=== PATIENT | female | born 1985 | race Caucasian/White ===

== ENCOUNTER 2017-11-09 06:31 | Inpatient (IN) | payer OTHER ==
[~2017-11-09] VITALS: Ht 160 cm; Wt 93.0 kg
[~2017-11-09 06:31] MED LIST: PERCOCET 325 MG1 TA2 PO
[2017-11-09 08:16] LABS: ABSOLUTE BASOPHIL COUNT 0 /CUMM (0.0-0.2); ABSOLUTE EOSINOPHIL COUNT 0.2 /CUMM (0.0-0.7); ABSOLUTE GRANULOCYTE CT 4.3 /CUMM (1.4-6.5); ABSOLUTE MONOCYTE COUNT 0.5 /CUMM (0.10-0.60); BASOPHIL % 0.5 % (0.0-2.0); EOSINOPHIL % 2.1 % (0-5); GRANULOCYTE % 61.4 % (42.2-75.2); HEMATOCRIT 32.7 % (37-47); MEAN CORPUSCULAR HGB 31.2 PG (27.0-31.0); MEAN CORPUSCULAR HGB CONC 34.8 G/DL (33.0-37.0); MEAN CORPUSCULAR VOLUME 89.9 FL (81.0-99.0); MEAN PLATELET VOLUME 9.4 FL (7.4-10.4); PLATELET COUNT 196 /CUMM (130-400); RBC DISTRIBUTION WIDTH 13.9 % (11.5-14.5); RED BLOOD CELL CT 3.63 /CUMM (4.20-5.40)
--- NOTE | 2017-11-09 10:03 | History & Physical ---
General Information and HPI MD Statement: I have seen and personally examined ORACIO NIETO and documented this H&P. The patient is a 32 year old female at [40] weeks and [] days gestation who presented with a chief complaint of [LOF]. Source of Information: patient Exam Limitations: no limitations History of Present Illness: 32yo, at 40 wks , c/o LOF since 4:30AM, occasional ctxs, denies VB, reports GFM. care started at 10wks. issues: 1. prior c/s on 06/02/2016 at 34 wks due to failed induction for preeclampsia. x 1 2002. pt desires to . 2. chronic HTN, she takes labetalol 150mg BID, BP WNL. 3. h/o genital herpes, pt takes valtrex since 36 wks 4. Rh negative, received RhoGAm at 28wks. 5. 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 History: preeclampsia Past Pregnancies Past Pregnancies: Date of Delivery: 200206/02/2016 Gestational Age: 40wks 34 wks Weight: 7lb4oz 3lb5oz Type of Delivery: vaginal (1st , 2nd ) Medical History Blood Transfusion Hx: No Neurological: NONE EENT: NONE Cardiovascular: hypertension, hyperlipidemia Respiratory: NONE Gastrointestinal: GERD Hepatic: NONE Renal: NONE Musculoskeletal: NONE Psychiatric: NONE Endocrine: NONE Blood Disorders: NONE 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 Home Smoking Status: Never Smoked ETOH Use: occasional use Illicit Drug Use: denies illicit drug use Review of Systems Review of Systems Constitutional: Reports: no symptoms. EENTM: Reports: no symptoms. Cardiovascular: Reports: no symptoms. Respiratory: Reports: no symptoms. GI: Reports: no symptoms. Genitourinary: Reports: see HPI. Musculoskeletal: Reports: no symptoms. Skin: Reports: no symptoms. Neurological/Psychological: Reports: no symptoms. Hematologic/Endocrine: Reports: no symptoms. Immunologic/Allergic: Reports: no symptoms. All Other Systems: Reviewed and Negative Exam & Diagnostic Data Last 24 Hrs of Vital Signs/I&O Vital Signs Date Time Temp Pulse Resp B/P B/P Pulse O2 O2 Flow FiO2 Mean Ox Delivery Rate 11/09 09 72 132/85 Intake & Output 11/09 1600 11/09 0800 11/09 0000 Intake Total Output Total Balance Patient 92.986 kg Weight Obstetric Exam Wgt Gained During : 20lbs Pelvimetry: adequate Dilation (cm): 3 Effacement (%): 50 Station: -2 Membranes: SROM Fluid: clear Fundal Height (cm): 40 Multiple Gestation? No Contractions: occasional #1 - FHR Baseline: 120 Category: 1 Estimated Weight: 3200G Presentation: vertex Patient for Induction? No Physical Exam: VSS General: NAD abdomen: gravid, soift, nontender Ext: DCT (-) Labs Blood Type & Rh: A negative Antibody Screen: negative Hct/Hgb & Platelets #1: 12.3/38.3%,[id number] Hct/Hgb & Platelets #2: 10.4/33.4%,[id number] Rubella: immune VDRL #1: negative VDRL #2: negative HbsAg: negative HIV #1: negative HIV #2 negative 1 Hr P Group B Strep: negative Initial Ultrasound: IUP at 10 wks Anatomy Ultrasound: nl Genetic Testing: nl Last 24 Hrs of Labs/Ricardo: Laboratory Tests 11/09/17 0830: Estimated GFR > 60, Uric Acid 6.3 H, AST 38 H, ALT 50, Lactate Dehydrogenase 581 11/09/17 0715: Urine Color YEL, Urine Clarity HAZY H, Urine pH 6.0, Ur Specific [place] >= 1.030, Urine Protein NEG, Urine Ketones NEG, Urine Nitrite NEG, Urine Bilirubin NEG, Urine Urobilinogen 0.2, Ur Leukocyte Esterase NEG, Ur Microscopic SEDIMENT EXAMINED, Urine WBC 1-3 H, Ur Epithelial Cells MANY H, Urine Bacteria FEW H, Urine Mucus FEW, Urine Hemoglobin NEG, Urine Glucose NEG 11/09/17 0650: CBC w Diff NO MAN DIFF REQ, RBC 3.63 L, MCV 89.9, MCH 31.2 H, MCHC 34.8, RDW 13.9, MPV 9.4, Gran % 61.4, Lymphocytes % 28.6, Monocytes % 7.4, Eosinophils % 2.1, Basophils % 0.5, Absolute Granulocytes 4.3, Absolute Lymphocytes 2.0, Absolute Monocytes 0.5, Absolute Eosinophils 0.2, Absolute Basophils 0 Assessment/Plan Assessment/Plan: 32yo, 40wks, SROM, prior c/s 1. admit pt, admision labs 2. R/B/A of d/w pt, she understand, all questions answered, informed cosnent obtained. d/w pt about pitocin auugmentation, R/B/A of pitocin d/w pt, she understand and agreed with plan. 3. will monitor closley As Ranked By This Provider Problem List: 1. 2. HTN (hypertension) 3. Previous section 4. SROM (spontaneous rupture of membranes) Core Measures Venous Thromboembolism VTE Risk Factors / No Mechanical VTE Prophylaxis d/t LowRisk-No Interven Req'd No VTE Pharm Prophylaxis d/t LowRisk-No Interven Req'd Attending MD Review Statement Attending Statement Attending MD Statement: examined this patient, discussed with family, discussed w/nursing
--- NOTE | 2017-11-09 13:42 | Labor & Delivery Summary ---
Delivery Summary Vaginal Delivery: Vaginal: vertex Episiotomy/Lacerations: Episiotomy/Lacerations: 2ND DEGREE Type: SMALL 2ND DEGREE Repair: 3-0 VICRYL Anesthesia: EPIDURAL Placenta: Placenta: spontanteous, normal, 3 vessel Anesthesia: EPIDURAL Baby's Weight: 3025G Apgars - 1 Min: 9 Apgars - 5 Min: 9 Additional Comments: Patient fully dilated, pushed well, spontaneously deliver a viable male in cephalic presentation, CHALRENE position, head delivered atraumatically, followed by shoulder and rest of the body without difficulties, baby vigorous and cried, placed on mother's chest, cord clamped and cut. Placenta delivered spontaneously, intact, three-vessel cord. Small second-degree laceration repaired with 3-0 Vicryl using standard technique. EBL 470 mL. Patient tolerated procedure well, sponge, needles and instruments counts were correct. Patient is in recovery room in stable condition.
[2017-11-10 08:33] LABS: ABSOLUTE BASOPHIL COUNT 0 /CUMM (0.0-0.2); ABSOLUTE EOSINOPHIL COUNT 0.1 /CUMM (0.0-0.7); ABSOLUTE GRANULOCYTE CT 5.7 /CUMM (1.4-6.5); ABSOLUTE LYMPH COUNT 1.9 /CUMM (1.2-3.4); ABSOLUTE MONOCYTE COUNT 0.6 /CUMM (0.10-0.60); BASOPHIL % 0.4 % (0.0-2.0); EOSINOPHIL % 1.5 % (0-5); GRANULOCYTE % 68.6 % (42.2-75.2); HEMATOCRIT 31.3 % (37-47); MEAN CORPUSCULAR HGB 30.8 PG (27.0-31.0); MEAN CORPUSCULAR HGB CONC 34.2 G/DL (33.0-37.0); MEAN CORPUSCULAR VOLUME 89.9 FL (81.0-99.0); MEAN PLATELET VOLUME 9.4 FL (7.4-10.4); PLATELET COUNT 176 /CUMM (130-400); RBC DISTRIBUTION WIDTH 14.1 % (11.5-14.5); RED BLOOD CELL CT 3.49 /CUMM (4.20-5.40); WHITE BLOOD CELL COUNT 8.3 /CUMM (4.8-10.8)
--- NOTE | 2017-11-11 07:56 | PN- OBGYN ---
Surgical Brief Attending Note Brief Attending Note: PPD#2 pt is resting in bed, no complaints, tolerate diet, void without difficulties, well PE: VSS CV RRR lungs CTA B/L Abdomen: soft, nontender, uterus firm, fundus below umbilicus. lochia mild Ext: DCT (-) A/P: 32 yo, s/p , PPD#2 1. encourage ambulation and breastfeeidng 2. continue labetalol 150mg BID, monitor BP at home. 3. will d/c home today, f/u in office in 1 wk and 6 wks, discharge instructions given, she understand.
--- NOTE | 2017-11-11 07:59 | PN- OBGYN ---
Surgical Brief Attending Note Brief Attending Note: Late entry for 11/10/2017 PPD#1 pt is fdoing well, no complaints PE: VSS CV RRR Lungs CTA B/L Abdomen: soft, nontender, uterus firm , funduns below umbilicus. lochia mild Ext: DCT (-) A/P: 32 yo, s/p , PPD#1 1. encourage ambulation and breastfeeidng 2. BP WNL, will continue labetalol 150mg BID, repeat lab 3. pt desires circumcision for the baby, R/B/A of circumcision d/w pt , all questions answered, informed consent obtained.
[2017-11-11 09:28] VITALS: BP 120/64
== END 2017-11-11 12:55 | DRG 560 ==
LOC: GNO 06:31
PROVIDERS: Obstetrics & Gynecology
PROC: 10E0XZZ Delivery of Products of Conception, External Approach (ICD-10-PCS; principal; 2017-11-09)
PROC: 0KQM0ZZ Repair Perineum Muscle, Open Approach (ICD-10-PCS; principal; 2017-11-09)
DX: O70.1 Second degree perineal laceration during delivery (principal); O10.92 Unspecified pre-existing hypertension complicating childbirth; O36.0990 Maternal care for other rhesus isoimmunization, unspecified trimester, not applicable or unspecified; Z3A.40 40 weeks gestation of pregnancy; Z37.0 Single live birth; O99.214 Obesity complicating childbirth
CPT/HCPCS: GNOP; GNOS; 81001; 86920; 86922; 87086; J3490; J7120

== ENCOUNTER 2017-11-12 21:35 | Observation (INO) | payer OTHER ==
[~2017-11-12] VITALS: Ht 157.5 cm; Wt 86.2 kg
--- NOTE | 2017-11-12 22:27 | ED GENERAL ADULT ---
History of Present Illness General Chief Complaint: General Adult Stated Complaint: 3DAYS POSTPARDOM, BLURRY VISION,ALFARO,CONFUSION Source: patient Exam Limitations: no limitations Vital Signs & Intake/Output Vital Signs & Intake/Output Vital Signs Date Time Temp Pulse Resp B/P B/P Pulse O2 O2 Flow FiO2 Mean Ox Delivery Rate 11/13 0058 68 142/77 11/12 2356 68 18 142/77 98 Room Air 11/12 2338 69 20 147/83 99 Room Air 11/12 2317 69 143/76 97 Room Air 11/12 2250 146/90 11/12 2247 71 18 147/92 97 Room Air 11/12 2245 71 146/90 11/12 2235 98.7 120 18 172/87 99 Room Air 11/12 2140 98.2 87 18 172/112 99 Room Air ED Intake and Output 11/13 0000 11/12 1200 Intake Total 0 Output Total Balance 0 Intake, Oral 0 Allergies Coded Allergies: No Known Allergies (11/09/17) Reconcile Medications Labetalol HCl 100 MG TABLET 1 TAB PO BID HTN (Reported) Triage Note: PT TO TRIAGE 3 DAYS C/O MILD HEADACHE,BLURRY VISION AND CONFUSION. 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 PREVIOUS HX OF PRECLAMPSIA. PT AFEBRILE. REPORTS SYMPTOMS HAVE SUBSIDED SOME SINCE ARRIVING TO ER. DENIES COMPLICATIONS WITH THIS AND HAD NORMAL VAGINAL DELIVERY. Triage Nurses Notes Reviewed? yes : No Patient currently breastfeeds: Yes HPI: 32-year-old female 3 days presents with mild amount of lower extremity edema, headache, blurry vision. Negative for nausea vomiting constipation diarrhea chills. Past History Travel History Traveled to [place] past 21 day No Medical History Any Pertinent Medical History? 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 No Review of Systems Review of Systems Constitutional: Reports: no symptoms, see HPI. EENTM: Reports: no symptoms. Respiratory: Reports: no symptoms. Cardiovascular: Reports: no symptoms. GI: Reports: no symptoms. Genitourinary: Reports: no symptoms. Musculoskeletal: Reports: no symptoms. Skin: Reports: no symptoms. Neurological/Psychological: Reports: no symptoms. Hematologic/Endocrine: Reports: no symptoms. Immunologic/Allergic: Reports: no symptoms. All Other Systems: Reviewed and Negative Physical Exam Physical Exam General Appearance: no apparent distress Comments: Gen.: Well-nourished, well-developed, no acute respiratory distress. Head: Normocephalic, atraumatic. Eyes: Normal inspection bilaterally Ears: Normal inspection bilaterally Nose: Normal inspection Throat/mouth : Moist mucosa Neck: Supple, full range of motion, no goiter Heart: Regular rate and rhythm, no murmurs rubs or gallops Lungs: Clear to auscultation bilaterally with normal air entry Chest: Nontender Back: Normal range of motion Abdomen: Soft, nontender, nondistended, normal bowel sounds Extremities: Normal range of motion grossly, equal radial pulses, no cyanosis clubbing or edema Neurologic: Cranial nerves grossly intact, speech is clear Skin: warm and dry Psychiatric: Calm, cooperative, no apparent delusions or hallucinations Core Measures ACS in differential dx? No CVA/TIA Diagnosis: No Sepsis Present: No Sepsis Focused Exam Completed? No Progress Differential Diagnoses I considered the following diagnoses in my evaluation of the patient: preeclampsia Plan of Care: Orders Procedure Date/time Status Regular Diet 11/13 B Active URIC ACID 11/13 0600 Active CREATININE 11/13 0600 Active TRNSFRASE ASPART AMINO 11/13 0600 Active TRNSFRAS ALANINE AMINO 11/13 0600 Active Vital Signs 11/13 0135 Active Activity/Ambulation 11/[address] in observation 11/13 0024 Active ED Holding Orders 11/13 0024 Active Patient Data 11/13 0024 Active Code Status 11/13 0024 Active Intake & Output 11/12 2303 Active URINALYSIS 11/12 2200 Active HUMAN BETA HCG SCREEN 11/12 2200 Complete COMPREHENSIVE METABOLIC PANEL 11/12 2200 Complete CBC WITHOUT DIFFERENTIAL 11/12 2200 Complete EKG 11/12 2200 Active Current Medications Sig/Fito Start time Last Medication Dose Stop Time Status Admin Ibuprofen 800 MG Q6P PRN 11/13 0130 AC (Motrin) Labetalol HCl 200 MG BID 11/13 0051 AC (Trandate-Normodyne 200MG Tab) Labetalol HCl 200 MG ONCE ONE 11/12 2214 CAN (Normodyne 11/13 2215 (Labetalol) DRIP) Dextrose/Water 200 ML (D5W) Magnesium Sulfate 4 GM ONCE ONE 11/12 2199 CAN 11/12 2200 Laboratory Tests 11/12/174: Anion Gap 7, Estimated GFR > 60, BUN/Creatinine Ratio 14.0, Glucose 92, Calcium 9.2, Total Bilirubin 0.4, AST 39 H, ALT 52, Alkaline Phosphatase 120, Total Protein 6.5, Albumin 3.7, Globulin 2.8, Albumin/Globulin Ratio 1.3, Total Beta HCG POSITIVE, CBC w Diff NO MAN DIFF REQ, RBC 3.52 L, MCV 90.6, MCH 30.2, MCHC 33.3, RDW 13.8, MPV 7.9, Gran % 53.4, Lymphocytes % 36.2, Monocytes % 6.4, Eosinophils % 3.4, Basophils % 0.6, Absolute Granulocytes 3.8, Absolute Lymphocytes 2.6, Absolute Monocytes 0.5, Absolute Eosinophils 0.2, Absolute Basophils 0 Initial ED EKG: Sinus rhythm of 71. PVC. Normal axis. Negative for ST segment deviation or t-wave inversion. No STEMI. PVCs are an interval change from prior. Prior EKG: changed Comments: Spoke with gynecology regarding Ms Pierce. 11/12/2017 10:52 PM: Labetalol not given. Half a gram of mag given and blood pressure decreased to 140/90 and symptoms have resolved. Departure Departure Disposition: STILL A PATIENT Condition: Stable Clinical Impression Primary Impression: Pre-eclampsia, Referrals: Shi Aguilera APRN (PCP/Family) Departure Forms: Customer Survey General Discharge Information Critical Care Note Critical Care Note Critical Care Time: non-applicable
[2017-11-12 22:56] LABS: ABSOLUTE BASOPHIL COUNT 0 /CUMM (0.0-0.2); ABSOLUTE EOSINOPHIL COUNT 0.2 /CUMM (0.0-0.7); ABSOLUTE GRANULOCYTE CT 3.8 /CUMM (1.4-6.5); ABSOLUTE LYMPH COUNT 2.6 /CUMM (1.2-3.4); ABSOLUTE MONOCYTE COUNT 0.5 /CUMM (0.10-0.60); BASOPHIL % 0.6 % (0.0-2.0); EOSINOPHIL % 3.4 % (0-5); GRANULOCYTE % 53.4 % (42.2-75.2); HEMATOCRIT 31.9 % (37-47); MEAN CORPUSCULAR HGB 30.2 PG (27.0-31.0); MEAN CORPUSCULAR HGB CONC 33.3 G/DL (33.0-37.0); MEAN CORPUSCULAR VOLUME 90.6 FL (81.0-99.0); MEAN PLATELET VOLUME 7.9 FL (7.4-10.4); PLATELET COUNT 215 /CUMM (130-400); RBC DISTRIBUTION WIDTH 13.8 % (11.5-14.5); RED BLOOD CELL CT 3.52 /CUMM (4.20-5.40); WHITE BLOOD CELL COUNT 7.1 /CUMM (4.8-10.8)
--- NOTE | 2017-11-13 00:36 | History & Physical ---
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
--- NOTE | 2017-11-13 00:39 | History & Physical ---
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
[2017-11-13] MEDS ORDERED: LABETALOL HCL100 M1 PO (01:27)
[2017-11-13 09:31] VITALS: BP 142/84
== END 2017-11-13 10:22 ==
LOC: ERH 21:35 → ERHI 11-13 00:24 → ERH 11-13 00:40 → ERHI 11-13 00:40 → ENRESERV 11-13 00:47 → GNO 11-13 01:40
PROVIDERS: Emergency Medicine
DX: O14.95 Unspecified pre-eclampsia, complicating the puerperium (principal)
CPT/HCPCS: 36415; 93005; 93010; 96374; G0378; J3475; J7060